=== PATIENT | female | born 1995 | race Caucasian/White ===

== ENCOUNTER 2021-10-11 09:29 | Emergency (ER) | payer OTHER ==
[~2021-10-11] VITALS: Ht 154.9 cm; Wt 74.8 kg
[2021-10-11] MEDS ORDERED: TESTOSTERO30 MG/1.5 (09:45)
[2021-10-11] MEDS ORDERED: DESYREL150 MG PO (09:46)
[2021-10-11] MEDS ORDERED: PROZAC 10 MG CA10 MG PO (09:46)
[2021-10-11 10:32] LABS: ABSOLUTE MONOCYTES 0.6 thou/uL (0.0-1.2); ABSOLUTE NEUTROPHILS 6.1 thou/uL (1.6-8.1); BASOPHILS 0.3 %; EOSINOPHILS 0.5 %; HEMATOCRIT 40.3 % (37.0-47.0); LYMPHOCYTES 13.2 %; MCH 27.3 pg (26.0-34.0); MCHC 32.2 g/dL (28.0-37.0); MONOCYTES 8.2 %; MPV 8.9 fl. (7.2-11.1); NUCLEATED RBCS 0 /100WBC; PLATELET COUNT* 259 thou/uL (150-400); POLYS 77.8 %; RBC 4.75 mil/uL (4.20-5.00); RDW-CV 14.2 % (10.5-14.5); WBC 7.9 thou/uL (4.0-11.0)
[2021-10-11 10:38] LABS: CALCIUM 8.5 mg/dL (8.5-10.1); CREATININE 0.9 mg/dL (0.6-1.3)
[2021-10-11 10:50] LABS: ALBUMIN 3.7 g/dL (3.4-5.0); TOTAL BILIRUBIN 0.3 mg/dL (<0.1-1.0); TOTAL PROTEIN 7.2 g/dL (6.4-8.2)
[2021-10-11 14:27] VITALS: BP 121/65
--- NOTE | 2021-10-12 13:14 | EKG ---
[place] [address] ELECTROCARDIOGRAM REPORT Name: DAJA BUSCH Room: [facility]#: [id number] Admission: 10/11/21 Attend Phys: Discharge: 10/11/21 Date of : [birth year] Date of Service: 10/11/21 1048 Report #: [id number] THIS REPORT FOR: //name// [facility] ED Test Date: 2021-10-11 Test Time: 10:48:50 Pat Name: DAJA BUSCH Department: Room: Gender: [employer] Lead: [facility] : 1995 Requested By: Harsh Matt Order Number: [id number] MD: Darius Hull Measurements Intervals [place] Rate: 61 P: 41 [place]: 173 QRS: 7 QRSD: 96 T: 13 QT: 399 QTc: 402 Interpretive Statements Sinus rhythm No previous ECG available for comparison Electronically Signed On 10-12-2021 13:14:00 ATTENDING AMBULATORY CARE by Darius Hull [email or web address] <ELECTRONICALLY SIGNED> By: Darius Hull MD, [facility] 10/12/21 1314 1048 47 Darius Hull MD, FACC /EPI
== END 2021-10-11 14:28 | disposition home or self-care (01) ==
LOC: M.ERS 09:29
PROVIDERS: Emergency Medicine Emergency Medical Services
DX: R56.9 Unspecified convulsions (principal); M54.2 Cervicalgia; R11.2 Nausea with vomiting, unspecified; R51.9 Headache, unspecified; Z79.899 Other long term (current) drug therapy